=== PATIENT | female | born 1950 | race African-American/Black ===

== ENCOUNTER 2018-10-13 11:45 | Inpatient (IN) ==
[2018-10-13 12:57] LABS: RBC,Urine 45103 /HPF (0-4)
[2018-10-13 12:58] LABS: Urine Color Red (Yellow)
[2018-10-13 12:59] LABS: Apearance,Urine Turbid (Clear); Glucose,Urine (UA) Negative (Negative); Ketones,Urine Negative (Negative); Protein,Urine 3+ MG/DL; Urine Specific Gravity 1.005 (1.001-1.035)
[2018-10-13 13:01] LABS: Bilirubin,Urine Negative (Negative); Blood, Urine Large mg/dL (Negative)
[2018-10-13 13:02] LABS: Nitrite,Urine Negative (Negative)
[2018-10-13 13:04] LABS: Eosinophils % 0.1 % (0.00-10.9); Immature Granulocytes % 1.2 %; Lymphocytes # 1.5 10*3/uL (1.4-4.0); Lymphocytes % 18.6 % (21.3-54.2); Mean Corpuscular HGB Conc 34.8 GM/DL (32-36); Mean Corpuscular Hemoglobin 31 PG (27-34); Mean Corpuscular Volume 88.2 FL (87-102); Mean Platelet Volume 10.4 FL (9.6-12.0); Monocytes # 0.5 10*3/uL (0.11-0.8); Monocytes % 5.7 % (1.7-12.7); Neutrophils # 6.1 10*3/uL (1.4-7.4); Neutrophils % 74.4 % (38.7-73.9); Platelet Count 358 T/CUMM (130-400); Red Blood Count 1.27 MC/CUMM (3.8-5.5); Red Cell Distribution Width 12.3 % (9.3-17.3); White Blood Count 8.2 T/CUMM (4-12)
[2018-10-13 13:08] LABS: Hemoglobin 3.9 GM/DL (12.0-16.0)
[2018-10-13] MEDS ORDERED: SODIUM CHLORIDE 0.9% 1,000 ML IV PRN (13:08)
[2018-10-13 13:09] LABS: Hematocrit 11.2 VOL% (35.7-47.0)
[2018-10-13] MEDS ORDERED: DEXAMETHASONE 10 MG/1 ML VIAL IV STA (13:12)
[2018-10-13 13:27] LABS: Albumin 2.9 G/DL (3.4-5.0); Bilirubin,Total 0.6 MG/DL (0.2-1.0); Calcium 7.5 MG/DL (8.5-10.1); Osmolality,Calculated 246.6 MOS/KG (273-304); Total Protein 6.4 G/DL (6.4-8.3)
[2018-10-13] MEDS ORDERED: DEXTROSE 50% 25 GM/50 ML VIAL IV STA (13:34)
[2018-10-13] MEDS ORDERED: INSULIN REGULAR 100 UNIT/ML IV STA (13:35)
[2018-10-13] MEDS ORDERED: SODIUM BICARBONATE 50 MEQ/50 ML VIAL IV STA (13:35)
[2018-10-13] MEDS ORDERED: SODIUM BICARBONATE 50 MEQ/50 ML SYRINGE IV ONE (13:55)
[2018-10-13] MEDS ORDERED: DEXTROSE 50% 25 GM/50 ML SYRINGE IV ONE (13:55)
[2018-10-13] MEDS ORDERED: CALCIUM CHLORIDE 1,000 MG/10 ML SYRINGE IV STA (14:44)
[2018-10-13] MEDS ORDERED: FUROSEMIDE 100 MG/10 ML VIAL ONE (15:13)
[2018-10-13] MEDS ORDERED: FUROSEMIDE 40 MG/4 ML VIAL IV STA (15:13)
[2018-10-13] MEDS ORDERED: ACETAMINOPHEN 325 MG TABLET PO PRN (16:07)
[2018-10-13] MEDS ORDERED: ONDANSETRON 4 MG/2 ML VIAL IV PRN (16:07)
[2018-10-13] MEDS: MORPHINE 4 MG/1 ML VIAL IV PRN (19:56)
[2018-10-13] MEDS ORDERED: GABAPENTIN 300 MG CAPSULE PO SCH (21:00)
[2018-10-13] MEDS ORDERED: ZALEPLON 5 MG CAPSULE PO SCH (21:00)
[2018-10-13] MEDS ORDERED: PANTOPRAZOLE 40 MG VIAL IV SCH (21:00)
[2018-10-13] MEDS ORDERED: ATENOLOL 25 MG TABLET PO SCH (21:00)
[2018-10-13] MEDS ORDERED: POTASSIUM CHLORIDE 10 MEQ TABLET PO SCH (21:00)
[2018-10-13] MEDS ORDERED: SODIUM CHLORIDE 1 GM TABLET PO SCH (21:00)
[2018-10-14] MEDS: MORPHINE 4 MG/1 ML VIAL IV PRN (02:38)
[2018-10-14 04:04] LABS: Basophils % 0.1 % (0.0-0.8); Hematocrit 22.3 VOL% (35.7-47.0); Hemoglobin 7.9 GM/DL (12.0-16.0); Immature Granulocytes % 1.1 %; Immature Granulocytes Absolute 0.08 #; Lymphocytes # 0.6 10*3/uL (1.4-4.0); Lymphocytes % 8.4 % (21.3-54.2); Mean Corpuscular HGB Conc 35.4 GM/DL (32-36); Mean Corpuscular Hemoglobin 30 PG (27-34); Mean Corpuscular Volume 85.4 FL (87-102); Mean Platelet Volume 10.1 FL (9.6-12.0); Monocytes # 0.3 10*3/uL (0.11-0.8); Monocytes % 4.4 % (1.7-12.7); NRBC # 0.02 10*3/uL; Neutrophils # 6.3 10*3/uL (1.4-7.4); Platelet Count 233 T/CUMM (130-400); Red Blood Count 2.61 MC/CUMM (3.8-5.5); Red Cell Distribution Width 12.8 % (9.3-17.3); White Blood Count 7.3 T/CUMM (4-12)
[2018-10-14 04:18] LABS: Calcium 7.9 MG/DL (8.5-10.1); Osmolality,Calculated 256.2 MOS/KG (273-304)
[2018-10-14 04:27] LABS: Potassium 6.4 MMOL/L (3.5-5.1)
[2018-10-14 04:54] LABS: Hypochromasia 1+; Ovalocytes Slight; Platelet Estimate Adequate
[2018-10-14] MEDS ORDERED: INSULIN REGULAR 100 UNIT/ML SUBCUT ONE (05:02)
[2018-10-14] MEDS ORDERED: CALCIUM GLUCONATE IV ONE (05:30)
[2018-10-14] MEDS ORDERED: DEXTROSE 5% IV ONE (05:30)
[2018-10-14] MEDS ORDERED: hydroCHLOROthiazide 25 MG TABLET PO SCH (09:00)
[2018-10-14] MEDS ORDERED: fentaNYL 12 MCG/HR PATCH TRANSDERM SCH (09:00)
[2018-10-14] MEDS ORDERED: ASPIRIN EC 81 MG TABLET PO SCH (09:00)
[2018-10-14] MEDS ORDERED: MULTIVITAMIN (CENTRUM) TABLET PO SCH (09:00)
[2018-10-14] MEDS ORDERED: PANTOPRAZOLE 40 MG TABLET PO SCH (09:00)
[2018-10-14 09:10] VITALS: BP 109/60
== END 2018-10-14 10:35 | disposition hospice, home (50) | DRG 754 ==
LOC: EDUNIT# → EDBD → N.ED 11:45 → N.EDINP 16:05 → N.5E 16:40
PROVIDERS: ADMIT Internal Medicine; ATTEND Internal Medicine